=== PATIENT | male | born 1965 | race Caucasian/White ===

== ENCOUNTER 2021-09-08 07:41 | Day surgery (SDC) | payer OTHER ==
[~2021-09-08 07:41] MED LIST: ADVACOR; ALBU90OI INH; AMOX1XR PO; ANDRODERM1 EAC1 TD; ATEN; AZIT250 PO; DIPH50 PO; ESOM20; GABA100 PO; GABA300; HYDCHL25 PO; HYDGUAL120 PO; INSLI100I; Lisinopril2.5 MG; METF500; METF500 PO; METH10 PO; NEXIUM; ONDA8ODT MM; OXYACE5T PO; OXYACE7.5T; OXYACE7.5T PO; OXYC10ER; OXYC20ER; OXYC30 PO; OXYC30ER PO; Pepcid40 MG PO; Percocet 5-3251 EACH PO; RXHYDGUAS PO; Roxicodone5 MG PO; TEMA30 PO; TRAM50 PO; TRAZ50 PO; VYTORIN; WARF5; Zofran8 MG PO
== END 2021-09-08 23:57 | disposition home or self-care (01) ==
LOC: WOUND 07:41
DX: E11.621 Type 2 diabetes mellitus with foot ulcer (principal); L97.525 Non-pressure chronic ulcer of other part of left foot with muscle involvement without evidence of necrosis; S91.102A Unspecified open wound of left great toe without damage to nail, initial encounter; X58.XXXA Exposure to other specified factors, initial encounter; E11.51 Type 2 diabetes mellitus with diabetic peripheral angiopathy without gangrene; E11.42 Type 2 diabetes mellitus with diabetic polyneuropathy; E11.65 Type 2 diabetes mellitus with hyperglycemia; Z88.8 Allergy status to other drugs, medicaments and biological substances; F17.210 Nicotine dependence, cigarettes, uncomplicated
CPT/HCPCS: G0463

== ENCOUNTER 2021-09-15 06:03 | Day surgery (SDC) | payer OTHER | END 2021-09-15 23:44 | disposition home or self-care (01) | LOC: WOUND 06:03 | DX: E11.621 Type 2 diabetes mellitus with foot ulcer (principal); L97.525 Non-pressure chronic ulcer of other part of left foot with muscle involvement without evidence of necrosis; E11.51 Type 2 diabetes mellitus with diabetic peripheral angiopathy without gangrene; E11.42 Type 2 diabetes mellitus with diabetic polyneuropathy; E11.65 Type 2 diabetes mellitus with hyperglycemia; S91.102A Unspecified open wound of left great toe without damage to nail, initial encounter | CPT/HCPCS: A9270; G0463 ==

== ENCOUNTER 2021-09-22 05:15 | Day surgery (SDC) | payer OTHER | END 2021-09-22 12:00 | disposition home or self-care (01) | LOC: WOUND 05:15 | DX: E11.621 Type 2 diabetes mellitus with foot ulcer (principal); L97.525 Non-pressure chronic ulcer of other part of left foot with muscle involvement without evidence of necrosis; E11.51 Type 2 diabetes mellitus with diabetic peripheral angiopathy without gangrene; E11.42 Type 2 diabetes mellitus with diabetic polyneuropathy; E11.65 Type 2 diabetes mellitus with hyperglycemia | CPT/HCPCS: G0463 ==

== ENCOUNTER → 2021-12-28 | Outpatient (CLI) | payer OTHER | END | disposition home or self-care (01) | LOC: LAB SHORT 10:30 | DX: E11.621 Type 2 diabetes mellitus with foot ulcer (principal) | CPT/HCPCS: 87070; 87075; 87077; 87147; 87186; 87205 ==

== ENCOUNTER → 2022-01-04 | Outpatient (CLI) | payer OTHER ==
[~2022-01-04] MED LIST changes: +CEPH500 PO
== END | disposition home or self-care (01) ==
LOC: LAB SHORT 11:11
DX: E11.42 Type 2 diabetes mellitus with diabetic polyneuropathy (principal)
CPT/HCPCS: 87070; 87075; 87077; 87205

== ENCOUNTER 2022-01-06 21:23 | Emergency (ER) | payer OTHER ==
[~2022-01-06] VITALS: Ht 167.6 cm; Wt 83.9 kg
[~2022-01-06 21:23] MED LIST changes: -CEPH500 PO
[2022-01-06] MEDS ORDERED: CEPH500 PO (23:02)
== END 2022-01-06 23:37 | disposition home or self-care (01) ==
LOC: ER 21:23
DX: S91.302A Unspecified open wound, left foot, initial encounter (principal); F17.200 Nicotine dependence, unspecified, uncomplicated; E11.9 Type 2 diabetes mellitus without complications; M21.42 Flat foot [pes planus] (acquired), left foot; M19.072 Primary osteoarthritis, left ankle and foot; Z79.899 Other long term (current) drug therapy; Z88.0 Allergy status to penicillin; Z88.8 Allergy status to other drugs, medicaments and biological substances; Z96.643 Presence of artificial hip joint, bilateral
CPT/HCPCS: 73630; A9270; J1885

== ENCOUNTER 2022-04-12 13:35 | Emergency (ER) | payer OTHER ==
[~2022-04-12] VITALS: Ht 167.6 cm; Wt 75.8 kg
[~2022-04-12 13:35] MED LIST changes: +CEPH500 PO
[2022-04-12 14:07] LABS: BASOPHILS ABSOLUTE AUTO 0.05 K/mm3 (0.00-0.23); BASOPHILS PERCENT AUTO 1 % (0-2); EOSINOPHILS ABSOLUTE AUTO 0.06 K/mm3 (0.00-0.68); EOSINOPHILS PERCENT AUTO 1 % (0-6); Hematocrit 43.9 % (37.0-53.0); Hemoglobin 14.7 g/dL (13.5-17.5); IMMATURE GRAN ABSOLUTE AUTO 0.02 K/mm3 (0.00-0.10); IMMATURE GRAN PERCENT AUTO 0 % (0-1); LYMPHOCYTES ABSOLUTE AUTO 2.29 K/mm3 (0.84-5.20); LYMPHOCYTES PERCENT AUTO 21 % (21-46); MONOCYTES ABSOLUTE AUTO 0.58 K/mm3 (0.16-1.47); MONOCYTES PERCENT AUTO 5 % (4-13); Mean Corpuscular HGB 28.4 pg (26.0-34.0); Mean Corpuscular HGB Conc 33.5 g/dL (31.5-36.5); Mean Corpuscular Volume 85 fL (80-100); Mean Platelet Volume 9.2 fL (9.1-12.4); NEUTROPHILS PERCENT AUTO 72 % (41-73); Platelet Count 237 K/mm3 (150-400); RDW Coefficient Variation 13.7 % (11.7-14.2); RDW Standard Deviation 42.7 fL (35.1-46.3); Red Blood Cell Count 5.17 M/mm3 (4.30-5.90)
[2022-04-12 14:27] LABS: Albumin, Blood 3.2 g/dL (3.4-5.0); Albumin/Globulin Ratio 0.7 (0.8-1.8); Bilirubin, Total 0.4 mg/dL (0.1-1.0); Bun/Creatinine Ratio 11.1 (12.0-20.0); Calcium, Blood 8.7 mg/dL (8.5-10.1); Creatinine, Blood 0.72 mg/dL (0.60-1.20); Globulin, Blood 4.3 g/dL (2.2-4.0); Total Protein, Blood 7.5 g/dL (6.4-8.2)
[2022-04-12] MEDS ORDERED: BLOOD THINNER (22:45)
== END 2022-04-12 17:05 | disposition left against medical advice (07) ==
LOC: ER 13:35
PROVIDERS: Physician Assistant
DX: L08.9 Local infection of the skin and subcutaneous tissue, unspecified (principal); Z79.899 Other long term (current) drug therapy; Z53.21 Procedure and treatment not carried out due to patient leaving prior to being seen by health care provider
CPT/HCPCS: 36415; 80053; 85025

== ENCOUNTER 2022-04-12 17:29 | Inpatient (IN) | payer OTHER ==
[~2022-04-12] VITALS: Ht 165.1 cm; Wt 74.0 kg
[2022-04-12] MEDS ORDERED: BLOOD THINNER (22:45)
[2022-04-13 05:36] LABS: BASOPHILS ABSOLUTE AUTO 0.04 K/mm3 (0.00-0.23); BASOPHILS PERCENT AUTO 1 % (0-2); EOSINOPHILS ABSOLUTE AUTO 0.15 K/mm3 (0.00-0.68); EOSINOPHILS PERCENT AUTO 2 % (0-6); Hematocrit 40.5 % (37.0-53.0); Hemoglobin 13.2 g/dL (13.5-17.5); IMMATURE GRAN ABSOLUTE AUTO 0.01 K/mm3 (0.00-0.10); IMMATURE GRAN PERCENT AUTO 0 % (0-1); LYMPHOCYTES ABSOLUTE AUTO 2.29 K/mm3 (0.84-5.20); LYMPHOCYTES PERCENT AUTO 30 % (21-46); MONOCYTES PERCENT AUTO 8 % (4-13); Mean Corpuscular HGB 27.9 pg (26.0-34.0); Mean Corpuscular HGB Conc 32.6 g/dL (31.5-36.5); Mean Corpuscular Volume 86 fL (80-100); Mean Platelet Volume 9.4 fL (9.1-12.4); NEUTROPHILS ABSOLUTE AUTO 4.54 K/mm3 (1.96-9.15); NEUTROPHILS PERCENT AUTO 60 % (41-73); Platelet Count 204 K/mm3 (150-400); RDW Coefficient Variation 13.7 % (11.7-14.2); RDW Standard Deviation 43.2 fL (35.1-46.3); Red Blood Cell Count 4.73 M/mm3 (4.30-5.90); White Blood Cell Count 7.63 K/mm3 (4.00-11.30)
--- NOTE | 2022-04-13 05:45 | NUR ---
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 HE IS FULL CODE. ALERT AND ORIENTED X4. ABLE TO AMBULATE WHEN NEEDED BUT INDEPENDENT WITH URINAL. LEFT GREAT TOE IS VERY LARGE AND RED WITH AN OPEN SORE TO THE BOTTOM. HE REPORTS PAIN TO THAT AREA AND RADIATING UP HIS LEFT LEG - MEDICATED X3. PT TO HAVE MRI TODAY OF HIS FOOT AND MOST LIKELY AMPUTATION OF THE TOE.
[2022-04-13 05:51] LABS: Albumin, Blood 2.8 g/dL (3.4-5.0); Albumin/Globulin Ratio 0.7 (0.8-1.8); Bilirubin, Total 0.4 mg/dL (0.1-1.0); Bun/Creatinine Ratio 14.7 (12.0-20.0); Calcium, Blood 8.5 mg/dL (8.5-10.1); Creatinine, Blood 0.75 mg/dL (0.60-1.20); Globulin, Blood 3.8 g/dL (2.2-4.0); Potassium, Blood 4.2 mmol/L (3.5-5.5); Total Protein, Blood 6.6 g/dL (6.4-8.2)
[2022-04-13 11:25] LABS: SARS-Cov-2 (COVID-19) PCR, MMC NEGATIVE (NEGATIVE)
--- NOTE | 2022-04-13 12:21 | NUR ---
PT RECENTLY TO [facility] BY [facility] WITH STAFF AND FAMILY. Patient confirms NPO status and agrees with scheduled surgery. Pre-Op teaching done. Pt verbalizes understanding. History, Chart, Medications and Allergies reviewed before start of procedure.Lungs clear T/O to Auscultation.
--- NOTE | 2022-04-13 13:30 | NUR ---
04/13/22 1330 Kwasi Jones PT ON SCHEDULED ANCEF NEXT DOSE 1600
--- NOTE | 2022-04-14 05:36 | NUR ---
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 HE IS A FULL CODE. THE PATIENT REPORTS WORSENING PAIN AND ORDER WAS OBTAINED FOR IV FENTANYL FOR BREAKTHROUGH PAIN. FENTANYL ADMINISTERED ONCE. MEDICATED MULTIPLE TIMES WITH ORAL OXYCODONE WITH LITTLE RELIEF. HE HAS CHRONIC HIP PAIN WELL AND IS ON HIS NORMAL PAIN MEDICATION REGIMEN. DRESSING TO LEFT FOOT IS C/D/I - SCANT DRIED BLOOD.
[2022-04-14] MEDS ORDERED: BACLOFEN5 M1 PO (13:00)
--- NOTE | 2022-04-14 13:15 | NUR ---
Patient doing well this morning, reports pain at surgical site. Patient upset that surgeon did not prescribe PRNs for post-op. MD assessed patient at bedside and ordered baclofen for pain. Left foot great toe amputated, foot wrapped with kerlix & SARA bandage, CDI. Vitals stable, removed IV. Instructed patient to follow-up with Podiatry on saturday for follow-up appt. Disharge teaching provided, patient verbalized understanding. Patient left medical unit at 1310.
== END 2022-04-14 13:08 | disposition home health service (06) | DRG 617 ==
LOC: ER 17:29 → MEDS 17:30 → SURS 17:30 → MEDS 22:22
PROVIDERS: Family Medicine; Podiatrist Foot & Ankle Surgery; ADMIT Internal Medicine
PROC: 0QBR0ZX Excision of Left Toe Phalanx, Open Approach, Diagnostic (ICD-10-PCS; 2022-04-13)
PROC: 3E03329 Introduction of Other Anti-infective into Peripheral Vein, Percutaneous Approach (ICD-10-PCS; 2022-04-13)
PROC: 0Y6Q0Z3 Detachment at Left 1st Toe, Low, Open Approach (ICD-10-PCS; principal; 2022-04-13 12:00)
DX: E11.69 Type 2 diabetes mellitus with other specified complication (principal); M00.9 Pyogenic arthritis, unspecified; M86.172 Other acute osteomyelitis, left ankle and foot; I10 Essential (primary) hypertension; Z88.0 Allergy status to penicillin; Z91.040 Latex allergy status; Z20.822 Contact with and (suspected) exposure to COVID-19; Z96.643 Presence of artificial hip joint, bilateral; G89.29 Other chronic pain; Z79.899 Other long term (current) drug therapy; Z88.8 Allergy status to other drugs, medicaments and biological substances; F17.210 Nicotine dependence, cigarettes, uncomplicated; L03.032 Cellulitis of left toe
CPT/HCPCS: 36415; 73660; 73718; 80053; 82947; 85025; 88305; 88307; 88311; 93005; 93010; 93971; 96365; 96366; 96375; 99285-25; A9270; G0378; J0690; J1885; J2001; J2250; J2270; J2370; J2405; J2704; J2765; J2795; J3010; J3370; J7050; J7060; J7120; U0004

== ENCOUNTER 2024-12-02 10:04 | Emergency (ER) | payer MEDICARE, OTHER ==
[~2024-12-02] VITALS: Ht 165.1 cm; Wt 66.7 kg
[~2024-12-02 10:04] MED LIST changes: +BACLOFEN5 M1 PO; +BLOOD THINNER
[2024-12-02 10:24] VITALS: BP 175/105
[2024-12-02 10:38] LABS: BASOPHILS ABSOLUTE AUTO 0.08 K/mm3 (0.00-0.23); BASOPHILS PERCENT AUTO 1 % (0-2); EOSINOPHILS ABSOLUTE AUTO 0.06 K/mm3 (0.00-0.68); EOSINOPHILS PERCENT AUTO 1 % (0-6); Hematocrit 45.7 % (37.0-53.0); Hemoglobin 16.8 g/dL (13.5-17.5); IMMATURE GRAN ABSOLUTE AUTO 0.02 K/mm3 (0.00-0.10); IMMATURE GRAN PERCENT AUTO 0 % (0-1); LYMPHOCYTES ABSOLUTE AUTO 2.67 K/mm3 (0.84-5.20); LYMPHOCYTES PERCENT AUTO 35 % (21-46); MONOCYTES ABSOLUTE AUTO 0.51 K/mm3 (0.16-1.47); MONOCYTES PERCENT AUTO 7 % (4-13); Mean Corpuscular HGB 29.7 pg (26.0-34.0); Mean Corpuscular HGB Conc 36.8 g/dL (31.5-36.5); Mean Corpuscular Volume 81 fL (80-100); NEUTROPHILS ABSOLUTE AUTO 4.24 K/mm3 (1.96-9.15); NEUTROPHILS PERCENT AUTO 56 % (41-73); Platelet Count 209 K/mm3 (150-400); RDW Coefficient Variation 12.1 % (11.7-14.2); RDW Standard Deviation 35.4 fL (35.1-46.3); Red Blood Cell Count 5.66 M/mm3 (4.30-5.90); White Blood Cell Count 7.58 K/mm3 (4.00-11.30)
[2024-12-02 10:49] LABS: Source, Urine Clean Catch
[2024-12-02 10:55] LABS: Appearance, Urine Clear (Clear); Bilirubin, Urine Neg (Neg); Blood, Urine Neg (Neg); Glucose Qualitative, Urine 4+ (Neg); Ketones, Urine Neg (Neg); Leukocyte Esterase, Urine Neg (Neg); Nitrite, Urine Neg (Neg); Protein, Urine Neg (Neg); Specific Gravity, Urine 1.015 (1.003-1.022); Urobilinogen, Urine NORM (Normal)
[2024-12-02 11:12] LABS: Color, Urine Pale Yellow (P-Yellow)
[2024-12-02 11:31] LABS: Albumin, Blood 3.8 g/dL (3.4-5.0); Albumin/Globulin Ratio 1.2 (0.8-1.8); Bilirubin, Total 0.5 mg/dL (0.1-1.0); Bun/Creatinine Ratio 20.3 (12.0-20.0); Creatinine, Blood 0.59 mg/dL (0.60-1.20); Globulin, Blood 3.2 g/dL (2.2-4.0); Potassium, Blood 3.9 mmol/L (3.5-5.5)
[2024-12-02] MEDS ORDERED: Acetaminophen 500 MG Tab PO ONE (13:20)
[2024-12-02] MEDS ORDERED: Ketorolac Tromethamine 30mg Vial IV ONE (13:20)
[2024-12-02] MEDS ORDERED: Insulin Regular 100 Unit/ML 1ML Dose SC ONE (14:50)
== END 2024-12-02 15:42 | disposition left against medical advice (07) ==
LOC: ER 10:04
PROVIDERS: Physician Assistant
DX: R07.81 Pleurodynia (principal); E11.65 Type 2 diabetes mellitus with hyperglycemia; T38.3X6A Underdosing of insulin and oral hypoglycemic [antidiabetic] drugs, initial encounter; E78.5 Hyperlipidemia, unspecified; K21.9 Gastro-esophageal reflux disease without esophagitis; F17.200 Nicotine dependence, unspecified, uncomplicated; Z53.29 Procedure and treatment not carried out because of patient's decision for other reasons; Z91.148 Patient's other noncompliance with medication regimen for other reason; Z88.0 Allergy status to penicillin; Z91.048 Other nonmedicinal substance allergy status; Z88.8 Allergy status to other drugs, medicaments and biological substances; Z79.899 Other long term (current) drug therapy
CPT/HCPCS: 71046; 76857; 80053; 81003; 82947; 84484; 85025; 85379; 93005; 93010; 96374; 99284-25; A9270; J1815; J1885

== ENCOUNTER → 2025-02-01 | Outpatient (CLI) | payer MEDICARE, OTHER ==
[2025-02-01 11:01] LABS: BASOPHILS ABSOLUTE AUTO 0.07 K/mm3 (0.00-0.23); BASOPHILS PERCENT AUTO 1 % (0-2); EOSINOPHILS ABSOLUTE AUTO 0.09 K/mm3 (0.00-0.68); EOSINOPHILS PERCENT AUTO 1 % (0-6); Hematocrit 49.5 % (37.0-53.0); Hemoglobin 17.2 g/dL (13.5-17.5); IMMATURE GRAN ABSOLUTE AUTO 0.02 K/mm3 (0.00-0.10); IMMATURE GRAN PERCENT AUTO 0 % (0-1); LYMPHOCYTES ABSOLUTE AUTO 2.88 K/mm3 (0.84-5.20); LYMPHOCYTES PERCENT AUTO 34 % (21-46); MONOCYTES ABSOLUTE AUTO 0.61 K/mm3 (0.16-1.47); MONOCYTES PERCENT AUTO 7 % (4-13); Mean Corpuscular HGB 29.7 pg (26.0-34.0); Mean Corpuscular HGB Conc 34.7 g/dL (31.5-36.5); Mean Corpuscular Volume 85 fL (80-100); Mean Platelet Volume 9.9 fL (9.1-12.4); NEUTROPHILS ABSOLUTE AUTO 4.91 K/mm3 (1.96-9.15); NEUTROPHILS PERCENT AUTO 57 % (41-73); Platelet Count 214 K/mm3 (150-400); RDW Standard Deviation 39.9 fL (35.1-46.3); White Blood Cell Count 8.58 K/mm3 (4.00-11.30)
[2025-02-01 11:20] LABS: Albumin, Blood 3.7 g/dL (3.4-5.0); Albumin/Globulin Ratio 0.9 (0.8-1.8); Bilirubin, Total 0.6 mg/dL (0.1-1.0); Bun/Creatinine Ratio 6.2 (12.0-20.0); Calcium, Blood 9.8 mg/dL (8.5-10.1); Creatinine, Blood 0.97 mg/dL (0.60-1.20); Globulin, Blood 3.9 g/dL (2.2-4.0); Potassium, Blood 4.9 mmol/L (3.5-5.5); Thyroid Stimulating Hormone 2.203 uIU/mL (0.360-4.800); Total Protein, Blood 7.6 g/dL (6.4-8.2)
== END ==
LOC: LAB 10:57 → LAB SHORT 10:57
PROVIDERS: Physician Assistant Medical
DX: E11.69 Type 2 diabetes mellitus with other specified complication (principal); R53.83 Other fatigue; Z79.4 Long term (current) use of insulin
CPT/HCPCS: 80053; 83036; 84443; 85025